=== PATIENT | female | born 1960 | race African-American/Black ===

== ENCOUNTER 2017-12-23 15:34 | Emergency (ER) | payer BC, MEDICARE ==
[2017-12-23] MEDS ORDERED: TETRACAINE 0.5% OPHTH SOLUTION 4ML BOTTLE. OD ONE (16:00)
--- NOTE | 2017-12-23 16:10 | PHYS DOC ---
Adult General Chief Complaint Chief Complaint: EYE PROBLEMS HPI HPI This is a pleasant 57-year-old female who presents the emergency department after feeling a sensation of a foreign body in the right part of her right eye./ Lateral part of her right eye. She had the dust from the ceiling fall onto her head and in her eye. Past medical history: History of atrial fibrillation, hypertension, glaucoma, COPD, CHF and asthma Surgical history: Right eye surgery (not recent), . Social history: Denies smoking drinking or IV drug use Review of systems is negative for chest pain shortness of breath fevers chills neck pain. All other review of systems is negative unless otherwise noted in history of present illness. ED course: 49-year-old female presenting to the emergency department today with sensation of foreign body in the right eye. On examination of the patient, the patient has extremely poor vision in her right eye baseline. 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 Unable to get visual acuity's on the right eye secondary to this. Left eye is 20/40. I exam including slit lamp exam show very small piece of ceiling material that was removed. Seidels neg. no corneal ulcers. Otherwise the remainder the eye exam is unremarkable. We will have the patient follow up with an eye doctor in the next day or two. She was then discharged home and stable condition. Her questions were asked to her satisfaction and she was comfortable with the plan. [id number] discharge instructions and return precautions given. Review of Systems Review of Systems SEE ABOVE. Current Medications Current Medications Current Medications Medications (Trade) Dose Ordered Sig/[facility] Start Time Stop Time Status Last Admin Dose Admin Fluorescein Sodium (Ful-Randi 1mg) 1 strip 1X ONCE 12/23/17 16:00 12/23/17 16:01 UNV Tetracaine HCl (Tetracaine) 1 drop 1X ONCE 12/23/17 16:00 12/23/17 16:01 UNV Physical Exam Physical Exam SEE ABOVE Constitutional: Well developed, well nourished, no acute distress, non-toxic appearance. [] HENT: Normocephalic, atraumatic, bilateral external ears normal, oropharynx moist, no oral exudates, nose normal. [] Eyes: Right Eye Exam w/ slit lamp: Visual Acuity: see above Visual Bledsoe: baseline per pt. better on the right upper and lower. worse on left upper and lower. Lac ducts/glands: No swelling Lids w/ evertion: Normal, 2 small pieces of ceiling material visualized and removed. Conj/[place]: Clear, negative Fluorescein/Espinoza's Anterior Chamber: Clear Neck: Normal range of motion, no tenderness, supple, no stridor. [] Cardiovascular:Heart rate regular rhythm, no murmur [] Lungs & Thorax: Bilateral breath sounds clear to auscultation [] Abdomen: Bowel sounds normal, soft, no tenderness, no masses, no pulsatile masses. [] Skin: Warm, dry, no erythema, no rash. [] Back: No tenderness, no CVA tenderness. [] Extremities: No tenderness, no cyanosis, no clubbing, ROM intact, no edema. [] Neurologic: Alert and oriented X 3, normal motor function, normal sensory function, no focal deficits noted. [] Psychologic: Affect normal, judgement normal, mood normal. [] EKG EKG [] Radiology/Procedures Radiology/Procedures [] Course & Med Decision Making Course & Med Decision Making Pertinent Labs and Imaging studies reviewed. (See chart for details) [] Dragon Disclaimer Dragon Disclaimer This electronic medical record was generated, in whole or in part, using a voice recognition dictation system. Departure Departure: Impression: Primary Impression: Foreign body of right eye Disposition: 01 HOME, SELF-CARE Condition: STABLE Referrals: NON,STAFF (PCP) Patient Instructions: Eye - Foreign Body Additional Instructions: Thank you for allowing us to participate in your care today. Return to the emergency department you have any new or worsening symptoms, or if you are concerned for any reason. Return to emergency department if you have any new or concerning symptoms including but not limited to fever, chills, nausea, vomiting, intractable pain, any new rashes, chest pain, shortness of air , uncontrolled bleeding, difficulty breathing, and/or vision loss. Follow up with an eye doctor today or tomorrow. Call your Primary Doctor tomorrow and inform them of your visit today. If you do not have a primary care provider we are happy to provide you with a list of our primary care providers contact information. This condition should be evaluated by your primary care physician and any recommended consulting services for continued management within 1-2 days after discharge. If at any time, you are having difficulty getting into your primary care doctor or a specialist, return to the emergency department. LEYDI HOOPER MD Dec 23, 2017 16:10
[2017-12-23] MEDS ORDERED: MINERAL OIL/PETROLATUM,WHITE OPHTH OINT 3.5GM TUBE. OD ONE (16:30)
[2017-12-23] MEDS ORDERED: FLUORESCEIN 1MG EYE STRIP. OD ONE (16:30)
[2017-12-23] MEDS ORDERED: [UNRECOGNIZED DRUG - CODE] TP (16:37)
[2017-12-23] MEDS ORDERED: TRAV5DRO EACHEYE (16:37)
[2017-12-23] MEDS ORDERED: NITR0.4T22 SL (16:37)
[2017-12-23] MEDS ORDERED: TRAM50TA PO (16:37)
[2017-12-23] MEDS ORDERED: FLUT1DIS5 IH (16:37)
[2017-12-23] MEDS ORDERED: DILT60TA PO (16:37)
[2017-12-23] MEDS ORDERED: ASPI81TA50 PO (16:37)
[2017-12-23] MEDS ORDERED: DOXY100C2 PO (16:37)
[2017-12-23] MEDS ORDERED: DIGO125T PO (16:37)
[2017-12-23] MEDS ORDERED: MONT10TA9 PO (16:37)
[2017-12-23] MEDS ORDERED: ASCO500T3 PO (16:37)
[2017-12-23] MEDS ORDERED: FURO40TA4 PO (16:37)
[2017-12-23] MEDS ORDERED: OMEP20CA9 PO (16:37)
[2017-12-23] MEDS ORDERED: METH-38 PO (16:37)
[2017-12-23] MEDS ORDERED: OLME20TA17 PO (16:37)
[2017-12-23] MEDS ORDERED: ALBU2.5V5 NEB (16:37)
[2017-12-23] MEDS ORDERED: PRED5TAB PO (16:37)
[2017-12-23] MEDS ORDERED: POTA10TA10 PO (16:37)
[2017-12-23] MEDS ORDERED: ALBU8.5H8 INH (16:37)
[2017-12-23 17:49] VITALS: BP 154/84
== END 2017-12-23 17:30 | disposition home or self-care (01) ==
LOC: ER 15:34
DX: T15.91XA Foreign body on external eye, part unspecified, right eye, initial encounter (principal); W20.8XXA Other cause of strike by thrown, projected or falling object, initial encounter; Y93.89 Activity, other specified; Y92.89 Other specified places as the place of occurrence of the external cause; Y99.8 Other external cause status
CPT/HCPCS: 65205; 65222; 99284

== ENCOUNTER 2019-09-16 11:53 | Emergency (ER) | payer BC, MEDICARE ==
[~2019-09-16] VITALS: Ht 167.6 cm; Wt 157.7 kg
[~2019-09-16 11:53] MED LIST: ALBU2.5V5 NEB; ALBU2.5V8 INH; ASCO500T3 PO; ASPI81TA50 PO; DIGO125T17 PO; DILT60TA PO; DOXY100C2 PO; FLUT1DIS5 IH; FURO40TA4 PO; METH-38 PO; MONT10TA80 PO; NITR0.4T22 SL; OLME20TA17 PO; OMEP20CA16 PO; POTA10TA10 PO; PRED5TAB PO; TRAM50TA PO; TRAV5DRO EACHEYE; [UNRECOGNIZED DRUG - CODE] TP
[2019-09-16] MEDS ORDERED: PRED20TA PO (12:27)
--- NOTE | 2019-09-16 12:27 | PHYS DOC ---
Past History Past Medical History: A-Fib, Arthritis, Asthma, CHF, COPD, Diabetes, MS Past Surgical History: Angioplasty, , Other Additional Past Surgical Histo: eye Alcohol Use: None Drug Use: None General Adult EDM: Chief Complaint: LOWER EXTREMITY EDEMA HPI: HPI: Patient is a 59-year-old female who complains of 2-day history of left foot pain. She states it is on the top of her foot just below her big toe all the way around to the bottom. She states it swollen and she thought it looked a little red. She states is very painful to walk on it. She denies any calf swelling or pain.] Review of Systems: Review of Systems: Constitutional: Denies fever or chills Eyes: Denies change in visual acuity HENT: Denies nasal congestion or sore throat Respiratory: Denies cough or shortness of breath Cardiovascular: Denies chest pain or edema GI: Denies abdominal pain, nausea, vomiting, bloody stools or diarrhea : Denies dysuria Musculoskeletal: Per HPI Integument: Denies rash Neurologic: Denies headache, focal weakness or sensory changes Endocrine: Denies polyuria or polydipsia Lymphatic: Denies swollen glands Psychiatric: Denies depression or anxiety Heart Score: Risk Factors: Risk Factors: DM, Current or recent (<one month) smoker, HTN, HLP, family history of CAD, obesity. Risk Scores: Score 0 - 3: 2.5% MACE over next 6 weeks - Discharge Home Score 4 - 6: 20.3% MACE over next 6 weeks - Admit for Clinical Observation Score 7 - 10: 72.7% MACE over next 6 weeks - Early Invasive Strategies Allergies: Allergies: Allergies Coded Allergies Type Severity Reaction Last Updated Verified Penicillins Allergy Intermediate 09/16/19 Yes Physical Exam: PE: Constitutional: Well developed, well nourished, no acute distress, non-toxic appearance. [] HENT: Normocephalic, atraumatic, bilateral external ears normal, oropharynx moist, no oral exudates, nose normal. [] Eyes: PERRLA, EOMI, conjunctiva normal, no discharge. [] Neck: Normal range of motion, no tenderness, supple, no stridor. [] Cardiovascular:Heart rate regular rhythm, no murmur [] Lungs & Thorax: Bilateral breath sounds clear to auscultation [] Abdomen: Bowel sounds normal, soft, no tenderness, no masses, no pulsatile masses. [] Skin: Warm, dry, no erythema, no rash. [] Back: No tenderness, no CVA tenderness. [] Extremities: The MCP joint of the left great toe is swollen tender and slightly erythematous [] Neurologic: Alert and oriented X 3, normal motor function, normal sensory function, no focal deficits noted. [] Psychologic: Anxious. [] Current Patient Data: Vital Signs: Vital Signs Date Time Temp Pulse Resp B/P (MAP) Pulse Ox O2 Delivery O2 Flow Rate FiO2 09/16/19 11:57 99.5 78 18 131/69 (89) 98 Room Air EKG: EKG: [] Radiology/Procedures: Radiology/Procedures: [] Course & Med Decision Making: Course & Med Decision Making Pertinent Labs and Imaging studies reviewed. (See chart for details) [] Dragon Disclaimer: Dragon Disclaimer: This electronic medical record was generated, in whole or in part, using a voice recognition dictation system. Departure Departure: Impression: Primary Impression: Gouty arthritis of great toe Disposition: HOME/RESIDENCE PRIOR TO ADM Condition: STABLE Referrals: PCP,NO (PCP) Patient Instructions: Gout Scripts Prednisone (PREDNISONE) 20 Mg Tablet 1 TAB PO TID for Bronchitis for 7 Days, #21 TAB Prov: AMAYA RUEDA DO 09/16/19 AMAYA RUEDA DO September 16, 2019 12:27
[2019-09-16] MEDS ORDERED: predniSONE 20 MG TABLET PO ONE (12:30)
[2019-09-16 12:50] VITALS: BP 134/73
== END 2019-09-16 12:49 | disposition home or self-care (01) ==
LOC: ER 11:53
DX: M10.9 Gout, unspecified (principal); M79.672 Pain in left foot; I48.91 Unspecified atrial fibrillation; M19.90 Unspecified osteoarthritis, unspecified site; J44.9 Chronic obstructive pulmonary disease, unspecified; E11.9 Type 2 diabetes mellitus without complications; I25.2 Old myocardial infarction; Z98.61 Coronary angioplasty status; Z88.0 Allergy status to penicillin
CPT/HCPCS: 99284; J7512